=== PATIENT | female | born 1965 | race Hispanic/Latino ===

== ENCOUNTER → 2018-09-24 | Day surgery (SDC) | payer OTHER ==
[~2018-09-24] MED LIST: MIDAZOLAM HCL 2 MG/2 ML VIAL ONE; PROPOFOL IV EMULSION 10 MG/ML 50 ML VIAL ONE
[2018-09-24 09:35] VITALS: BP 122/93
== END | disposition home or self-care (01) ==
LOC: OR 05:51
PROVIDERS: ATTEND Internal Medicine Gastroenterology
DX: Z12.11 Encounter for screening for malignant neoplasm of colon (principal); K64.8 Other hemorrhoids; Z01.810 Encounter for preprocedural cardiovascular examination
CPT/HCPCS: 45378; 93005; J2250